=== PATIENT | female | born 1955 | race African-American/Black ===

== ENCOUNTER 2018-01-07 08:00 | Emergency (ER) | payer OTHER, MEDICAID ==
[~2018-01-07] VITALS: Ht 154.9 cm; Wt 47.6 kg
[2018-01-07 08:22] VITALS: BP_SYST 151
[2018-01-07 08:41] VITALS: BP_SYST 140
== END 2018-01-07 08:41 | disposition home or self-care (01) ==
LOC: SED 08:00
DX: B02.9 Zoster without complications (principal); Z88.1 Allergy status to other antibiotic agents; Z88.8 Allergy status to other drugs, medicaments and biological substances
CPT/HCPCS: 99283

== ENCOUNTER 2018-05-19 07:48 | Emergency (ER) | payer OTHER, MEDICAID ==
[~2018-05-19] VITALS: Ht 154.9 cm; Wt 48.5 kg
[2018-05-19] MEDS ORDERED: BALANCED SALT IRRIG SOLN 15 ML IO ONE (07:49)
[2018-05-19] MEDS ORDERED: FLUORESCEIN SODIUM 1 MG OPHTHALMIC STRIP OP ONE (07:49)
[2018-05-19] MEDS ORDERED: TETRACAINE HCL 0.5% OPHTHALMIC DROPS 15 ML OP ONE (07:49)
[2018-05-19 08:00] VITALS: BP_SYST 142
[2018-05-19 10:15] VITALS: BP_SYST 135
== END 2018-05-19 10:15 | disposition home or self-care (01) ==
LOC: SED 07:48
DX: S05.01XA Injury of conjunctiva and corneal abrasion without foreign body, right eye, initial encounter (principal); H11.31 Conjunctival hemorrhage, right eye; R03.0 Elevated blood-pressure reading, without diagnosis of hypertension; Z88.1 Allergy status to other antibiotic agents; Z88.8 Allergy status to other drugs, medicaments and biological substances; W50.4XXA Accidental scratch by another person, initial encounter; Y93.89 Activity, other specified; Y92.89 Other specified places as the place of occurrence of the external cause; Y99.8 Other external cause status
CPT/HCPCS: 99283

== ENCOUNTER 2021-04-03 10:40 | Inpatient (IN) | payer OTHER, MEDICAID, SELFPAY ==
[~2021-04-03] VITALS: Ht 149.9 cm; Wt 52.2 kg
[2021-04-03 10:55] VITALS: BP_SYST 125
[2021-04-03] MEDS ORDERED: DIPH-TET-PERTUS Vaccine 0.5 ML VIAL (ADACEL) I.M. ONE (11:00)
[2021-04-03] MEDS ORDERED: IBUPROFEN 800 MG TABLET PO ONE (11:00)
[2021-04-03] MEDS ORDERED: HYDROcodone/ACETAMIN 10-325 MG TAB PO ONE (11:00)
[2021-04-03] MEDS ORDERED: BACITRACIN 1 GM OINT TP ONE (11:00)
[2021-04-03] MEDS ORDERED: cefTRIAXone 1 GM in LIDOCAINE 1%, 20 ML MDV 2.1 ML IM ONE (12:15)
[2021-04-03 14:02] LABS: BASOPHILS # (AUTO) 0.1 K/uL (0.0-0.2); EOSINOPHILS # (AUTO) 0.5 K/uL (0.0-0.4); EOSINOPHILS % (AUTO) 6.7 % (0.0-4.0); HEMATOCRIT 37.9 % (36-48); HEMOGLOBIN 12.6 g/dL (12.0-16.0); LYMPHOCYTES # (AUTO) 1.8 K/uL (1.0-5.5); LYMPHOCYTES % (AUTO) 24.8 % (20.5-51.5); MEAN CORPUSCULAR HEMOGLOBIN 28 pg (27-31); MEAN CORPUSCULAR HGB CONC 33 % (32-36); MEAN CORPUSCULAR VOLUME 84 fL (79.0-98.0); MONOCYTES # (AUTO) 0.6 K/uL (0.0-1.0); MONOCYTES % (AUTO) 8.2 % (1.7-9.3); NEUTROPHILS # (AUTO) 4.3 K/uL (1.8-7.7); NEUTROPHILS % (AUTO) 59.3 % (40.0-70.0); PLATELET COUNT (AUTO) 298 K/uL (130-430); RED BLOOD CELL COUNT(AUTO) 4.51 MIL/uL (4.2-6.2); RED CELL DISTRIBUTION WIDTH 13.9 % (9.0-15.0); WHITE BLOOD COUNT (AUTO) 7.3 K/uL (4.8-10.8)
[2021-04-03 14:19] LABS: CALCIUM 9.6 mg/dL (8.4-11.0); CREATININE 0.69 mg/dL (0.55-1.30)
[2021-04-03 14:23] LABS: INR 1.1 (0.8-1.2); PROTHROMBIN TIME 11.2 SECS (9.5-12.5)
[2021-04-03 14:32] LABS: ALBUMIN 3.1 g/dL (3.4-4.8); TOTAL BILIRUBIN 0.2 mg/dL (0.0-1.0)
[2021-04-03 14:42] LABS: BILIRUBIN,URINE NEGATIVE (NEGATIVE); BLOOD, URINE 1+ (NEGATIVE); CLARITY/URINE CLOUDY (CLEAR); COLOR,URINE YELLOW (YELLOW); GLUCOSE,URINE NEGATIVE (NEGATIVE); KETONES,URINE NEGATIVE (NEGATIVE); LEUKOCYTE ESTERASE ,URINE 3+ (NEGATIVE); NITRITE, URINE NEGATIVE (NEGATIVE); PH,URINE 5.5 (5.0-8.0); PROTEIN URINE NEGATIVE (NEGATIVE); UROBILINOGEN,URINE 0.2 (0.2-1.0)
[2021-04-03] MEDS ORDERED: QUET300T2 PO (14:59)
[2021-04-03] MEDS ORDERED: DOCU250C14 PO (14:59)
[2021-04-03] MEDS ORDERED: LORA-258 PO (14:59)
[2021-04-03] MEDS ORDERED: FER300L PO (14:59)
[2021-04-03] MEDS ORDERED: NAPR-686 PO (14:59)
[2021-04-03] MEDS ORDERED: LIP10 PO (14:59)
[2021-04-03] MEDS ORDERED: ARIP2TAB3 PO (14:59)
[2021-04-03] MEDS: D5/0.45 NS 1,000 ML IV SCH (15:05)
[2021-04-03 15:13] LABS: BACTERIA,URINE RARE /HPF (None Seen); WBC,URINE 50-80 /HPF (0-3)
[2021-04-03 17:21] VITALS: BP_SYST 139
[2021-04-03 19:00] VITALS: BP_SYST 135
[2021-04-03 20:00] VITALS: BP_SYST 135
[2021-04-04 00:11] VITALS: BP_SYST 121
[2021-04-04 07:26] LABS: BASOPHILS # (AUTO) 0.1 K/uL (0.0-0.2); BASOPHILS % (AUTO) 1.1 % (0.0-2.0); EOSINOPHILS # (AUTO) 0.5 K/uL (0.0-0.4); EOSINOPHILS % (AUTO) 6.7 % (0.0-4.0); HEMATOCRIT 37.1 % (36-48); HEMOGLOBIN 12.4 g/dL (12.0-16.0); LYMPHOCYTES # (AUTO) 1.3 K/uL (1.0-5.5); LYMPHOCYTES % (AUTO) 17.5 % (20.5-51.5); MEAN CORPUSCULAR HEMOGLOBIN 28 pg (27-31); MEAN CORPUSCULAR HGB CONC 33 % (32-36); MEAN CORPUSCULAR VOLUME 83 fL (79.0-98.0); MONOCYTES # (AUTO) 0.5 K/uL (0.0-1.0); MONOCYTES % (AUTO) 7.6 % (1.7-9.3); NEUTROPHILS # (AUTO) 4.8 K/uL (1.8-7.7); NEUTROPHILS % (AUTO) 67.1 % (40.0-70.0); PLATELET COUNT (AUTO) 272 K/uL (130-430); RED BLOOD CELL COUNT(AUTO) 4.45 MIL/uL (4.2-6.2); RED CELL DISTRIBUTION WIDTH 13.7 % (9.0-15.0); WHITE BLOOD COUNT (AUTO) 7.2 K/uL (4.8-10.8)
[2021-04-04 07:45] LABS: PROTHROMBIN TIME 10.7 SECS (9.5-12.5)
[2021-04-04 08:00] VITALS: BP_SYST 110
[2021-04-04 08:01] LABS: ALBUMIN 2.7 g/dL (3.4-4.8); CALCIUM 9.2 mg/dL (8.4-11.0); CREATININE 0.53 mg/dL (0.55-1.30); POTASSIUM 3.6 mmol/L (3.5-5.1); TOTAL BILIRUBIN 0.2 mg/dL (0.0-1.0)
[2021-04-04 12:00] VITALS: BP_SYST 109
[2021-04-04] MEDS: D5/0.45 NS 1,000 ML IV SCH (12:24)
[2021-04-04] MEDS ORDERED: fentaNYL CITRATE/PF 100 MCG/2 ML AMP ONE (15:11)
[2021-04-04] MEDS ORDERED: WATER FOR IRRIGATION,STERILE 1,000 ML IRRIG.SOLN IR ONE (15:11)
[2021-04-04] MEDS ORDERED: LIDOCAINE 1% 10 MG/ML, 20 ML MDV ONE (15:11)
[2021-04-04] MEDS ORDERED: ePHEDrine sulfate 50 MG/ML VIAL ONE (15:11)
[2021-04-04] MEDS ORDERED: PROPOFOL 200MG/ 20ML VIAL (DIPRIVAN) IV ONE (15:11)
[2021-04-04] MEDS ORDERED: LR 1,000 ML IV.SOLN IV ONE (15:11)
[2021-04-04] MEDS ORDERED: SEVOFLURANE 15 MIN GAS INH ONE (15:11)
[2021-04-04] MEDS ORDERED: GLYCOPYRROLATE 0.2 MG/ML VIAL ONE (15:11)
[2021-04-04] MEDS ORDERED: BUPIVACAINE /PF 0.25% 30 ML VIAL INJ ONE (15:11)
[2021-04-04] MEDS ORDERED: METOCLOPRAMIDE HCL 10 MG/2 ML VIAL ONE (15:11)
[2021-04-04] MEDS ORDERED: ONDANSETRON HCL 4 MG/2 ML VIAL ONE (15:11)
[2021-04-04] MEDS ORDERED: HYDROmorphone 2 MG/ML VIAL IVP PRN (15:15)
[2021-04-04] MEDS ORDERED: HYDROmorphone 1 MG/ML INJ. CARTRIDGE IVP PRN (15:15)
[2021-04-04] MEDS ORDERED: KETOROLAC TROMETHAMINE 30 MG VIAL IVP PRN (15:15)
[2021-04-04] MEDS ORDERED: ONDANSETRON HCL 4 MG/2 ML VIAL IVP PRN (15:15)
[2021-04-04 20:00] VITALS: BP_SYST 147
[2021-04-04] MEDS: CEFAZOLIN 1 GM IVPB PREMIX 50 ML IV SCH (21:47)
[2021-04-05 01:28] VITALS: BP_SYST 126
[2021-04-05] MEDS: CEFAZOLIN 1 GM IVPB PREMIX 50 ML IV SCH ×3 (05:29→22:43)
[2021-04-05] MEDS: D5/0.45 NS 1,000 ML IV SCH (05:38)
[2021-04-05 07:30] LABS: BASOPHILS # (AUTO) 0.1 K/uL (0.0-0.2); BASOPHILS % (AUTO) 0.7 % (0.0-2.0); EOSINOPHILS # (AUTO) 0.2 K/uL (0.0-0.4); EOSINOPHILS % (AUTO) 2.8 % (0.0-4.0); HEMATOCRIT 36.1 % (36-48); HEMOGLOBIN 12.1 g/dL (12.0-16.0); LYMPHOCYTES # (AUTO) 0.9 K/uL (1.0-5.5); LYMPHOCYTES % (AUTO) 11.4 % (20.5-51.5); MEAN CORPUSCULAR HEMOGLOBIN 28 pg (27-31); MEAN CORPUSCULAR HGB CONC 33 % (32-36); MEAN CORPUSCULAR VOLUME 83 fL (79.0-98.0); MONOCYTES # (AUTO) 0.6 K/uL (0.0-1.0); MONOCYTES % (AUTO) 7.2 % (1.7-9.3); NEUTROPHILS # (AUTO) 6.1 K/uL (1.8-7.7); NEUTROPHILS % (AUTO) 77.9 % (40.0-70.0); PLATELET COUNT (AUTO) 277 K/uL (130-430); RED BLOOD CELL COUNT(AUTO) 4.35 MIL/uL (4.2-6.2); RED CELL DISTRIBUTION WIDTH 13.3 % (9.0-15.0); WHITE BLOOD COUNT (AUTO) 7.9 K/uL (4.8-10.8)
[2021-04-05 08:00] VITALS: BP_SYST 129
[2021-04-05 12:00] VITALS: BP_SYST 135
[2021-04-05 16:00] VITALS: BP_SYST 138
[2021-04-06] MEDS: D5/0.45 NS 1,000 ML IV SCH ×2 (02:30→21:16)
[2021-04-06] MEDS: CEFAZOLIN 1 GM IVPB PREMIX 50 ML IV SCH ×3 (06:25→21:15)
[2021-04-06] MEDS ORDERED: NAPROXEN 250 MG TABLET PO PRN (11:45)
[2021-04-06] MEDS ORDERED: DOCUSATE SODIUM 250 MG CAPSULE PO ONE (12:00)
[2021-04-06] MEDS ORDERED: ATORVASTATIN 10 MG TABLET PO ONE (12:00)
[2021-04-06] MEDS ORDERED: LORazepam 1 MG TABLET PO ONE (12:00)
[2021-04-06] MEDS ORDERED: ARIPiprazole 2 MG TAB PO ONE (12:00)
[2021-04-06] MEDS ORDERED: FERROUS SULFATE 300 MG/5 ML UDC PO ONE (12:00)
[2021-04-06 20:00] VITALS: BP_SYST 133
[2021-04-06] MEDS: QUEtiapine FUMARATE 100 MG TABLET PO SCH (21:14)
[2021-04-06] MEDS: LORazepam 1 MG TABLET PO SCH (21:15)
[2021-04-07] VITALS: BP_SYST 113
[2021-04-07] MEDS: CEFAZOLIN 1 GM IVPB PREMIX 50 ML IV SCH ×3 (05:58→21:00)
[2021-04-07] MEDS ORDERED: ARIPiprazole 2 MG TAB PO SCH (09:00)
[2021-04-07] MEDS: DOCUSATE SODIUM 250 MG CAPSULE PO SCH (09:00)
[2021-04-07 09:52] VITALS: BP_SYST 113
[2021-04-07 11:28] VITALS: BP_SYST 85
[2021-04-07] MEDS: ATORVASTATIN 10 MG TABLET PO SCH (12:20)
[2021-04-07] MEDS: FERROUS SULFATE 300 MG/5 ML UDC PO SCH (12:20)
[2021-04-07] MEDS: LORazepam 1 MG TABLET PO SCH ×2 (12:22→20:57)
[2021-04-07 15:37] VITALS: BP_SYST 114
[2021-04-07] MEDS: D5/0.45 NS 1,000 ML IV SCH (17:17)
[2021-04-07 20:00] VITALS: BP_SYST 88
[2021-04-07] MEDS: QUEtiapine FUMARATE 100 MG TABLET PO SCH (20:57)
[2021-04-08 00:16] VITALS: BP_SYST 92
[2021-04-08] MEDS: CEFAZOLIN 1 GM IVPB PREMIX 50 ML IV SCH (05:12)
[2021-04-08 06:23] LABS: BASOPHILS # (AUTO) 0.1 K/uL (0.0-0.2); BASOPHILS % (AUTO) 0.7 % (0.0-2.0); EOSINOPHILS # (AUTO) 0.7 K/uL (0.0-0.4); EOSINOPHILS % (AUTO) 7.4 % (0.0-4.0); HEMATOCRIT 35.1 % (36-48); HEMOGLOBIN 11.7 g/dL (12.0-16.0); LYMPHOCYTES # (AUTO) 1.7 K/uL (1.0-5.5); LYMPHOCYTES % (AUTO) 17.5 % (20.5-51.5); MEAN CORPUSCULAR HEMOGLOBIN 28 pg (27-31); MEAN CORPUSCULAR HGB CONC 33 % (32-36); MEAN CORPUSCULAR VOLUME 84 fL (79.0-98.0); MONOCYTES # (AUTO) 1.3 K/uL (0.0-1.0); MONOCYTES % (AUTO) 13.1 % (1.7-9.3); NEUTROPHILS % (AUTO) 61.3 % (40.0-70.0); PLATELET COUNT (AUTO) 291 K/uL (130-430); RED BLOOD CELL COUNT(AUTO) 4.18 MIL/uL (4.2-6.2); RED CELL DISTRIBUTION WIDTH 13.5 % (9.0-15.0); WHITE BLOOD COUNT (AUTO) 9.8 K/uL (4.8-10.8)
[2021-04-08 06:30] LABS: CALCIUM 9.3 mg/dL (8.4-11.0); CREATININE 0.55 mg/dL (0.55-1.30); POTASSIUM 3.9 mmol/L (3.5-5.1)
[2021-04-08] MEDS: LORazepam 1 MG TABLET PO SCH (10:17)
[2021-04-08] MEDS: DOCUSATE SODIUM 250 MG CAPSULE PO SCH (10:17)
[2021-04-08] MEDS: FERROUS SULFATE 300 MG/5 ML UDC PO SCH (10:18)
[2021-04-08] MEDS: ATORVASTATIN 10 MG TABLET PO SCH (10:18)
[2021-04-08] MEDS ORDERED: CEPH250C PO (10:34)
[2021-04-08 11:31] VITALS: BP_SYST 105
[2021-04-08 14:45] VITALS: BP_SYST 92
== END 2021-04-08 15:05 | disposition home health service (06) | DRG 908 ==
LOC: SED 10:40 → SMU 14:25
PROVIDERS: ADMIT Internal Medicine; ATTEND Internal Medicine
PROC: 0Y6P0Z3 Detachment at Right 1st Toe, Low, Open Approach (ICD-10-PCS; principal; 2021-04-04 14:00)
DX: S98.111A Complete traumatic amputation of right great toe, initial encounter (principal); E44.0 Moderate protein-calorie malnutrition; R64 Cachexia; E78.5 Hyperlipidemia, unspecified; M19.90 Unspecified osteoarthritis, unspecified site; R62.50 Unspecified lack of expected normal physiological development in childhood; X58.XXXA Exposure to other specified factors, initial encounter; Z20.822 Contact with and (suspected) exposure to COVID-19; Z99.3 Dependence on wheelchair; Z88.8 Allergy status to other drugs, medicaments and biological substances; Z79.899 Other long term (current) drug therapy; Y93.89 Activity, other specified; Y92.89 Other specified places as the place of occurrence of the external cause; Y99.8 Other external cause status
CPT/HCPCS: 36415; 71045; 80048; 80053; 81000; 82962; 84484; 85025; 85610-TC; 85730-TC; 87081; 87086; 90715; 93005; 96360; 96372; 97163-GP; 99285; J0690; J0696; J2001; J2405; J2704; J2765; J3010; J3490; J7120

== ENCOUNTER 2021-04-16 08:33 | Emergency (ER) | payer OTHER, MEDICAID ==
[~2021-04-16] VITALS: Ht 154.9 cm; Wt 51.7 kg
[~2021-04-16 08:33] MED LIST: ARIP2TAB3 PO; CEPH250C PO; DOCU250C14 PO; FER300L PO; LIP10 PO; LORA-258 PO; NAPR-686 PO; QUET300T2 PO
[2021-04-16 08:44] VITALS: BP_SYST 94
--- NOTE | 2021-04-16 08:50 | NUR ---
PLACE IN BED 8
--- NOTE | 2021-04-16 08:52 | NUR ---
MD ABRAMS AT BEDSIDE ASSESSING PT.
--- NOTE | 2021-04-16 08:59 | NUR ---
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 PT IS MENTALLY DISABLED, BEDBOUND.
[2021-04-16 09:32] LABS: BASOPHILS # (AUTO) 0.1 K/uL (0.0-0.2); BASOPHILS % (AUTO) 1.2 % (0.0-2.0); EOSINOPHILS # (AUTO) 0.4 K/uL (0.0-0.4); EOSINOPHILS % (AUTO) 5.5 % (0.0-4.0); HEMATOCRIT 37.5 % (36-48); HEMOGLOBIN 12.5 g/dL (12.0-16.0); LYMPHOCYTES # (AUTO) 1.4 K/uL (1.0-5.5); LYMPHOCYTES % (AUTO) 18.5 % (20.5-51.5); MEAN CORPUSCULAR HEMOGLOBIN 28 pg (27-31); MEAN CORPUSCULAR HGB CONC 33 % (32-36); MEAN CORPUSCULAR VOLUME 84 fL (79.0-98.0); MONOCYTES # (AUTO) 0.7 K/uL (0.0-1.0); MONOCYTES % (AUTO) 9.3 % (1.7-9.3); NEUTROPHILS # (AUTO) 4.9 K/uL (1.8-7.7); NEUTROPHILS % (AUTO) 65.5 % (40.0-70.0); PLATELET COUNT (AUTO) 436 K/uL (130-430); RED BLOOD CELL COUNT(AUTO) 4.46 MIL/uL (4.2-6.2); RED CELL DISTRIBUTION WIDTH 13.7 % (9.0-15.0); WHITE BLOOD COUNT (AUTO) 7.5 K/uL (4.8-10.8)
[2021-04-16 09:37] LABS: CALCIUM 9.3 mg/dL (8.4-11.0); CREATININE 0.65 mg/dL (0.55-1.30); POTASSIUM 3.9 mmol/L (3.5-5.1)
[2021-04-16 09:43] LABS: ALBUMIN 2.6 g/dL (3.4-4.8); C-REACTIVE PROTEIN QUANT 1.7 mg/dL (0-0.5); TOTAL BILIRUBIN 0.1 mg/dL (0.0-1.0)
[2021-04-16 11:07] VITALS: BP_SYST 125
--- NOTE | 2021-04-16 11:08 | NUR ---
Patient'S [employer] given written and verbal discharge instructions and verbalizes understanding. ER MD discussed with patient the results and treatment provided. Patient in stable condition. ID arm band removed. Rx of NONE given. Patient educated on pain management and to follow up with PMD. Pain Scale 0/10. Opportunity for questions provided and answered. Medication side effect fact sheet provided.
== END 2021-04-16 11:08 | disposition home or self-care (01) ==
LOC: SED 08:33
DX: L89.152 Pressure ulcer of sacral region, stage 2 (principal); Z88.1 Allergy status to other antibiotic agents; Z88.5 Allergy status to narcotic agent; Z88.8 Allergy status to other drugs, medicaments and biological substances; Z79.899 Other long term (current) drug therapy
CPT/HCPCS: 36415; 80053; 85025; 86140; 99283

== ENCOUNTER 2024-01-12 07:51 | Emergency (ER) | payer OTHER, MEDICAID ==
[~2024-01-12] VITALS: Ht 152.4 cm; Wt 49.9 kg
[~2024-01-12 07:51] MED LIST changes: -ARIP2TAB3 PO; +ARIP5TAB42 PO
[2024-01-12 08:05] VITALS: BP_SYST 125; PULSE 85; RESP 17; TEMP 98; O2SAT 97
[2024-01-12] MEDS ORDERED: ALBMDI INH (10:10)
[2024-01-12] MEDS ORDERED: ZIT250 PO (10:10)
[2024-01-12 10:23] LABS: INFLUENZA TYPE A Negative (NEGATIVE); INFLUENZA TYPE B NEGATIVE (NEGATIVE)
[2024-01-12 10:42] VITALS: BP_SYST 125; PULSE 79; RESP 20; TEMP 98; O2SAT 98
== END 2024-01-12 10:41 | disposition home or self-care (01) ==
LOC: SED 07:51
DX: J98.4 Other disorders of lung (principal); Z20.822 Contact with and (suspected) exposure to COVID-19; Z88.1 Allergy status to other antibiotic agents; Z88.5 Allergy status to narcotic agent; Z88.8 Allergy status to other drugs, medicaments and biological substances; Z79.899 Other long term (current) drug therapy; Z79.2 Long term (current) use of antibiotics
CPT/HCPCS: 36415; 71045; 99284